=== PATIENT | female | born 1970 | race Caucasian/White ===

== ENCOUNTER 2020-03-03 14:46 | Emergency (ER) | payer BC, OTHER ==
[~2020-03-03] VITALS: Ht 180.3 cm; Wt 170.1 kg
[~2020-03-03 14:46] MED LIST: ACETAMINOPHEN-1 EAC1 PO; CEFDINIR300 MG PO; CLARITIN10 MG PO; CRESTOR10 MG PO; HUMALOG100 UNIT/2 SQ; HYDROCHLOROTHIA50 MG PO; LANTUS SOL100 UNIT/1 SQ; LISINOPRIL5 MG PO; NORCO 5-325 TA1 EAC1 PO; SERTRALINE HCL50 MG PO; SYMLINPEN2700 MCG/2 SQ
[2020-03-03] MEDS ORDERED: KEFLEX500 M1 PO (15:08)
[2020-03-03 15:29] LABS: URINE BLOOD TRACE (Negative); URINE CLARITY CLEAR; URINE COLOR YELLOW; URINE GLUCOSE-RANDOM 1+ (Negative); URINE KETONES NEGATIVE (Negative); URINE LEUKOCYTES-REFLEX NEGATIVE (Negative); URINE NITRITE-REFLEX NEGATIVE (Negative); URINE PROTEIN TRACE (Negative); URINE SPECIFIC GRAVITY >= 1.030 (1.005-1.030)
[2020-03-03 15:30] LABS: ICTOTEST (BILI CONFIRMATORY) Negative (Negative); URINE BILIRUBIN 1+ (Negative)
[2020-03-03 15:49] LABS: ABSOLUTE EOSINOPHILS 0.1 thou/uL (0.0-0.7); ABSOLUTE LYMPHOCYTES 1.5 thou/uL (0.8-5.3); ABSOLUTE MONOCYTES 0.9 thou/uL (0.0-1.2); ABSOLUTE NEUTROPHILS 4.1 thou/uL (1.6-8.1); BASOPHILS 0.7 %; EOSINOPHILS 2.1 %; HEMATOCRIT 41.4 % (37.0-47.0); LYMPHOCYTES 22.1 %; MCHC 33.8 g/dL (28.0-37.0); MCV 88.9 fL (80.0-100.0); MONOCYTES 12.8 %; MPV 9.4 fl. (7.2-11.1); NUCLEATED RBCS 0 /100WBC; PLATELET COUNT* 243 thou/uL (150-400); POLYS 62.3 %; RBC 4.66 mil/uL (4.20-5.00); RDW-CV 12.9 % (10.5-14.5); WBC 6.6 thou/uL (4.0-11.0)
[2020-03-03 16:00] LABS: CALCIUM 8.2 mg/dL (8.5-10.1); CREATININE 1.4 mg/dL (0.6-1.3); POTASSIUM 3.9 mmol/L (3.5-5.1)
[2020-03-03 16:05] LABS: ALBUMIN 3.3 g/dL (3.4-5.0); TOTAL BILIRUBIN 0.6 mg/dL (<0.1-1.0)
[2020-03-03] MEDS ORDERED: FLAGYL500 M1 PO (17:28)
[2020-03-03 17:53] VITALS: BP 147/80
--- NOTE | 2020-03-04 11:40 | EKG ---
[place] [address] ELECTROCARDIOGRAM REPORT Name: GAYE ZAPATA Room: [facility]#: [id number] Admission: 03/03/20 Attend Phys: Discharge: 03/03/20 Date of : 66 Date of Service: 03/03/20 1534 Report #: [id number] THIS REPORT FOR: //name// [facility] ED Test Date: 2020-03-03 Test Time: 15:34:04 Pat Name: GAYE ZAPATA Department: Room: Gender: Hand [employer]andy C[employer]: : 1970 Requested By: Shanti Shea Order Number: [id number] MD: Prabhu Cody Measurements Intervals [place] Rate: 87 P: 34 AK: 170 QRS: -1 QRSD: 87 T: 12 QT: 347 QTc: 418 Interpretive Statements Sinus rhythm Low voltage, precordial leads Probable septal infarct, old No previous ECG available for comparison Electronically Signed On 03-04-2020 11:40:24 CDT by Prabhu Cody [email or web address] <ELECTRONICALLY SIGNED> By: Prabhu Cody MD, [facility] 03/04/20 1140 1534 1534 Prabhu Cody MD, [facility] /EPI
== END 2020-03-03 17:54 | disposition home or self-care (01) ==
LOC: M.ERS 14:46
PROVIDERS: Nurse Practitioner Family
DX: R19.7 Diarrhea, unspecified (principal); E10.9 Type 1 diabetes mellitus without complications; E78.00 Pure hypercholesterolemia, unspecified; Z90.710 Acquired absence of both cervix and uterus; Z90.89 Acquired absence of other organs; Z90.49 Acquired absence of other specified parts of digestive tract; Z98.51 Tubal ligation status; Z88.5 Allergy status to narcotic agent; Z88.2 Allergy status to sulfonamides; Z88.1 Allergy status to other antibiotic agents; Z88.8 Allergy status to other drugs, medicaments and biological substances

== ENCOUNTER → 2021-01-27 | Outpatient (CLI) | payer BC, OTHER ==
[~2021-01-27] MED LIST changes: +FLAGYL500 M1 PO; +KEFLEX500 M1 PO
== END ==
LOC: M.RAD 12:30
PROVIDERS: ATTEND Internal Medicine Endocrinology, Diabetes & Metabolism
DX: Z12.31 Encounter for screening mammogram for malignant neoplasm of breast (principal); N64.89 Other specified disorders of breast

== ENCOUNTER → 2021-02-14 | Outpatient (CLI) | payer BC, OTHER ==
--- NOTE | 2021-02-17 08:08 | PATH ---
[address] [address] PATHOLOGY RPT PROCEDURE Name: BEE ZAPATA Room: [facility] Marco#: [id number] Admission: 02/14/21 Date of : 66 Discharge: Report #: [id number] Path Case #: [id number] [facility] Accession Number: [id number] . 01 Material submitted: . breast - LEFT BREAST BIOPSY FOR MASS. Modifiers: left . 01 Clinical history: . LEFT BREAST BIOPSY FOR MASS . 02 Diagnosis: Left breast mass, image guided core biopsies: - Benign breast tissue with usual ductal epithelial hyperplasia, focal microglandular adenosis and chronic inflammation, negative for atypia. See comment. LBQ 02/16/2021 1036 Local . 02 Comment: Reviewed with Dr. Taniya Perdomo on 02/16/2021 who agrees with the diagnosis. (KENYETTA/db; 02/16/2021) . 02 Electronically signed: . Michi Amin MD, Pathologist NPI- [id number] . 01 Gross description: . The specimen is received in formalin, labeled "Bee Zapata and left breast mass". It consists of multiple arnold-yellow, irregular fibrofatty soft tissue segments ranging from 1.7-4.5 cm in greatest dimension. The specimen is entirely submitted in A1-A5. Time removed from patient: 1105 on 02/14/21 Time in formalin: 1110 on 02/14/21 Time removed from formalin: 2340 on 02/14/21 Total time in formalin: 12 hours 30 minutes (MRF; 02/14/2021) MFE/MFE 02/14/2021 1949 Local . 02 Pathologist provided ICD-10: N62, N60.22, N61.0 . 02 CPT . 086647 Specimen Comment: A courtesy copy of this report has been sent to [phone] Specimen Comment: [phone] Specimen Comment: Report sent to / DR DIAL Specimen Comment: [place] [address] PATHOLOGY RPT PROCEDURE Name: BEE ZAPATA Room: [facility]#: [id number] Admission: 02/14/21 Date of : 66 Discharge: Report #: [id number] Path Case #: [id number] Performed at: 01 [facility] [facility] [address], [place], [place] [id number] MD Ash Mar MD Phone: [phone] Performed at: [address] [facility] [address] [place] [id number] MD Michi Amin MD Phone: [phone]
== END | disposition home or self-care (01) ==
LOC: M.RAD 10:23
PROVIDERS: ATTEND Internal Medicine Endocrinology, Diabetes & Metabolism
DX: N63.21 Unspecified lump in the left breast, upper outer quadrant (principal); R92.1 Mammographic calcification found on diagnostic imaging of breast; N62 Hypertrophy of breast; N60.22 Fibroadenosis of left breast; N61.0 Mastitis without abscess